=== PATIENT | male | born 1995 | race Caucasian/White ===

== ENCOUNTER 2019-02-01 19:00 | Emergency (ER) | payer BC ==
[2019-02-01 19:10] VITALS: BP 139/74
--- NOTE | 2019-02-01 19:28 | UC ---
Head Injury HPI - HPI Summary HPI Summary: 23-year-old male comes in with chief complaint of head injury and bloody nose. At approximately 3:30 this afternoon patient was snowboarding he fell backwards striking the back of his head. He had a helmet on the helmet did not break. Denies any neck pain. Patient reports he had the catheter himself together which took about 30 seconds before he got up finished snowboarding down the rest of the slope. He did stop snowboarding at that time. No change in vision or speech no weakness or numbness. The headache is gone away now. No confusion. Just prior to arrival he had some epistaxis that was yellow blood color. Epistaxis is also stopped. No facial injury. - History Of Current Complaint Chief Complaint: UCHeadInjury Stated Complaint: HEAD INJURY Time Seen by Provider: 02/01/19 19:14 Pain Intensity: 0 - Allergies/Home Medications Allergies/Adverse Reactions: Allergies Allergy/AdvReac Type Severity Reaction Status Date / Time tuna fish Allergy Severe Swelling Uncoded 02/01/19 19:10 Of Face,Lips,& Throat Home Medications: Home Medications NK [No Home Medications Reported] 02/01/19 [History Confirmed 02/01/19] PMH/Surg Hx/FS Hx/Imm Hx Previously Healthy: Yes - Surgical History Surgical History: None - Family History Known Family History: Positive: Hypertension, Diabetes - Social History Alcohol Use: Occasionally Substance Use Type: None Smoking Status (MU): Never Smoked Tobacco Review of Systems All Other Systems Reviewed And Are Negative: Yes Constitutional: Positive: Other - SEE HPI Skin: Positive: Negative Eyes: Positive: Negative ENT: Positive: Epistaxis Respiratory: Positive: Negative Cardiovascular: Positive: Negative Gastrointestinal: Positive: Negative Motor: Positive: Negative Neurovascular: Positive: Negative Musculoskeletal: Positive: Negative Neurological: Positive: Headache Psychological: Positive: Negative Is Patient Immunocompromised?: No Physical Exam Triage Information Reviewed: Yes Appearance: Well-Appearing, No Pain Distress, Well-Nourished Vital Signs: Initial Vital Signs Temp 98.9 F 02/01/19 19:06 Pulse 107 02/01/19 19:06 Resp 18 02/01/19 19:06 BP 139/74 02/01/19 19:06 Pulse Ox 97 02/01/19 19:06 Vital Signs Reviewed: Yes Eye Exam: Normal Eyes: Positive: Conjunctiva Clear, Other: - PERRLA EOMI. No photophobia. ENT: Positive: TMs normal - No hemotympanum. Patient does have some scarring on his eardrums., Other - On examination of the nares are do not see any active bleeding or dried blood or any nasal discharge. Nose is nontender to palpation.. Negative: Nasal drainage Neck: Positive: Supple, Nontender Respiratory: Positive: Lungs clear, Normal breath sounds, No respiratory distress Cardiovascular: Positive: RRR Musculoskeletal: Positive: Strength Intact, ROM Intact Neurological: Positive: Alert, Muscle Tone Normal, Other: - No focal neurologic deficit. No confusion. Psychological: Positive: Age Appropriate Behavior Skin Exam: Normal Head Injury Course/Dx - Course Course Of Treatment: . After striking his head the patient did not lose consciousness he did continue to have a headache until just prior to arrival here to clinic. In clinic he denies having a headache. No focal neurologic deficits no nausea or vomiting photophobia. The epistaxis patient reported that it was yellow blood colored and so we entertain the possibility of a CSF leak. He does not have any epistaxis at this time and he is pain-free therefore the probability of a CSF leak is highly unlikely. We discussed getting a head CT after discussing the signs and symptoms of concussion and head injury skull fractures and brain bleeds and at this time patient prefers no head CT. Plan is to use Tylenol or ibuprofen if he has anymore headaches and watch out for any signs of concussion. If any of his symptoms do return he needs to get reevaluated and cleared for concussion symptoms by either [facility] or sports medicine. Patient at this time is not in any active sports. I let him know that if his symptoms did return is to avoid any activities that to make the symptoms return. Also discussed if anything got worse with pain nausea vomiting change in vision or speech weakness or numbness confusion or fevers he is to go to the emergency department. - Differential Dx/Diagnosis Provider Diagnosis: Head injury, Epistaxis Discharge ED - Sign-Out/Discharge Documenting (check all that apply): Patient Departure All imaging exams completed and their final reports reviewed: No Studies - Discharge Plan Condition: Stable Disposition: HOME Patient Education Materials: Nosebleed (ED), Concussion (ED), Head Injury (ED) Referrals: [facility] [Outside] Sports Medicine [facility] [Provider Group] Additional Instructions: FOLLOW UP WITH [facility] OR SPORTS MEDICINE IF NOT COMPLETELY IMPROVED. GO TO THE EMERGENCY DEPARTMENT IF WORSE; PAIN, WEAKNESS, NUMBNESS, CONFUSION, CHANGE IN VISION OR SPEECH OR ANY QUESTIONS OR CONCERNS. - Billing Disposition and Condition Condition: STABLE Disposition: Home
== END 2019-02-01 19:33 | disposition home or self-care (01) ==
LOC: UCCORT 19:00
DX: S09.90XA Unspecified injury of head, initial encounter (principal); R04.0 Epistaxis; Z91.013 Allergy to seafood; V00.311A Fall from snowboard, initial encounter; Y93.23 Activity, snow (alpine) (downhill) skiing, snowboarding, sledding, tobogganing and snow tubing; Y92.9 Unspecified place or not applicable
CPT/HCPCS: 99211; G0463